=== PATIENT | female | born 1965 | race Two or more races ===

== ENCOUNTER 2020-12-17 19:24 | Inpatient (IN) | payer MEDICAID, OTHER ==
[~2020-12-17] VITALS: Ht 157.5 cm; Wt 90.7 kg
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
[2020-12-17] MEDS ORDERED: ONDANSETRON HCL/PF 4 MG/2 ML VIAL IVP ONE (20:30)
[2020-12-17] MEDS ORDERED: MORPHINE SULFATE INJ 2 MG/ML DISP.SYRIN IV ONE (20:30)
[2020-12-17] MEDS ORDERED: LORAZEPAM INJ 2 MG/ML VIAL IV ONE ×2 (20:30)
[2020-12-17] MEDS ORDERED: IV NS 0.9% 1,000 ML BAG IV ONE (20:30)
[2020-12-17] MEDS ORDERED: LORAZEPAM INJ 2 MG/ML VIAL ONE (20:38)
[2020-12-17] MEDS ORDERED: MORPHINE SULFATE INJ 4 MG/ML DISP.SYRIN ONE (20:38)
[2020-12-17] MEDS ORDERED: ONDANSETRON HCL/PF 4 MG/2 ML VIAL ONE (20:38)
[2020-12-17 20:47] LABS: BASOPHILS % (AUTO) 0.4 % (0.0-2.0); EOSINOPHILS % (AUTO) 1.3 % (0.0-6.0); HEMATOCRIT 47 % (33-45); HEMOGLOBIN 15.5 g/dL (11.5-14.8); LYMPHOCYTES # (AUTO) 2.1 /CMM (0.8-4.8); LYMPHOCYTES % (AUTO) 22.3 % (20.0-44.0); MEAN CORPUSCULAR HGB CONC 33 g/dl (31.0-36.0); MEAN CORPUSCULAR VOLUME 85 fL (82-100); MONOCYTES # (AUTO) 0.6 /CMM (0.1-1.30); MONOCYTES % (AUTO) 6.1 % (2.0-12.0); NEUTROPHILS # (AUTO) 6.7 /CMM (1.8-8.9); NEUTROPHILS % (AUTO) 69.9 % (43.0-81.0); PLATELET COUNT (AUTO) 241 /CMM (150-450); RED BLOOD CELL COUNT(AUTO) 5.55 MIL/uL (4.0-5.2); WHITE BLOOD COUNT (AUTO) 9.6 K/uL (4.3-11.0)
[2020-12-17] MEDS ORDERED: ACETAMINOPHEN ES 500 MG TABLET ONE (20:55)
[2020-12-17] MEDS ORDERED: ACETAMINOPHEN 325 MG TABLET PO ONE (21:00)
[2020-12-17] MEDS ORDERED: CT SWABBABLE VALVE TRANS SET 1 EA INFUS.SET MC ONE (21:26)
[2020-12-17] MEDS ORDERED: IOHEXOL-300 100 ML VIAL IV ONE (21:26)
[2020-12-17] MEDS ORDERED: IV NS 0.9% 250 ML IV ONE (21:26)
[2020-12-17 21:32] LABS: CALCIUM, SERUM 9.4 mg/dL (8.5-10.1); CREATININE 0.9 mg/dL (0.6-1.3); POTASSIUM 3.7 mmol/L (3.5-5.1)
[2020-12-17 21:39] LABS: ALBUMIN 3.9 g/dL (3.4-5.0); BILIRUBIN,DIRECT 0.1 mg/dL (0.0-0.2); BILIRUBIN,TOTAL 0.3 mg/dL (0.2-1.0); TOTAL PROTEIN, SERUM 8.3 g/dL (6.4-8.2)
--- NOTE | 2020-12-17 21:55 | NUR ---
PA ON THE PHONE WITH DR LOPEZ NEUROSTHADDEUSON
[2020-12-17] MEDS ORDERED: LEVETIRACETAM (500MG) 1,000 MG in IV NS 0.9% 100 ML IV ONE (22:00)
[2020-12-17] MEDS ORDERED: LEVETIRACETAM (500MG) 500 MG/5 ML VIAL IV ONE (22:04)
--- NOTE | 2020-12-18 00:39 | NUR ---
PER HOLGER HILLMAN OKAY TO D/C HARD CERVICAL COLLAR AT THIS TIME
[2020-12-18] MEDS ORDERED: Z GUARD REMEDY 2 OZ OINT TP PRN (01:00)
[2020-12-18] MEDS ORDERED: ONDANSETRON HCL/PF 4 MG/2 ML VIAL IVP PRN (01:00)
[2020-12-18] MEDS ORDERED: MAG HYDROX/AL HYDROX/SIMETH 30 ML UDC PO PRN (01:00)
[2020-12-18] MEDS ORDERED: ACETAMINOPHEN 325 MG TABLET PO PRN (01:00)
[2020-12-18] MEDS ORDERED: ZOLPIDEM TARTRATE 5 MG TABLET PO PRN (01:00)
[2020-12-18] MEDS ORDERED: MAGNESIUM HYDROXIDE 30 ML UDC PO PRN (01:00)
[2020-12-18] MEDS ORDERED: HYDROCODONE/APAP 5/325MG TABLET PO PRN (01:00)
--- NOTE | 2020-12-18 01:00 | NUR ---
PT C/O HEADACHE. MD AWARE
[2020-12-18] MEDS ORDERED: MORPHINE SULFATE INJ 2 MG/ML DISP.SYRIN ONE (01:10)
--- NOTE | 2020-12-18 01:11 | NUR ---
PT BROUGHT BY RADIOLOGY TO CT
[2020-12-18] MEDS ORDERED: MORPHINE SULFATE INJ 2 MG/ML DISP.SYRIN IV ONE (01:30)
[2020-12-18 06:01] LABS: BASOPHILS # (AUTO) 0.1 /CMM (0.0-0.2); BASOPHILS % (AUTO) 0.9 % (0.0-2.0); HEMATOCRIT 41 % (33-45); HEMOGLOBIN 13.4 g/dL (11.5-14.8); LYMPHOCYTES # (AUTO) 2.3 /CMM (0.8-4.8); LYMPHOCYTES % (AUTO) 30.4 % (20.0-44.0); MEAN CORPUSCULAR HGB CONC 33 g/dl (31.0-36.0); MEAN CORPUSCULAR VOLUME 84 fL (82-100); MONOCYTES # (AUTO) 0.6 /CMM (0.1-1.30); MONOCYTES % (AUTO) 8.1 % (2.0-12.0); NEUTROPHILS # (AUTO) 4.5 /CMM (1.8-8.9); NEUTROPHILS % (AUTO) 59.6 % (43.0-81.0); PLATELET COUNT (AUTO) 211 /CMM (150-450); RED BLOOD CELL COUNT(AUTO) 4.85 MIL/uL (4.0-5.2); WHITE BLOOD COUNT (AUTO) 7.5 K/uL (4.3-11.0)
--- NOTE | 2020-12-18 06:47 | NUR ---
Patient is resting comfortably in bed with eyes closed. Easily aroused. VSS. will cont to monitor
[2020-12-18 07:50] LABS: CALCIUM, SERUM 8.4 mg/dL (8.5-10.1); CREATININE 0.8 mg/dL (0.6-1.3); MAGNESIUM 2.4 mg/dL (1.8-2.4); PHOSPHORUS 4.3 mg/dL (2.5-4.9); POTASSIUM 3.9 mmol/L (3.5-5.1)
--- NOTE | 2020-12-18 07:56 | NUR ---
PATIENT A/OX4, BREATHING EVEN AND UNLABORED, NO CHANGE IN LOC, NEURO CHECK DONE. PATIENT DENIES ANY PAIN AT THIS TIME.
--- NOTE | 2020-12-18 09:00 | NUR ---
PATIENT A/OX4, BREATHING EVEN AND UNLABORED, NO SOB NOTED. NEEDS ATTENDED. KEPT COMFORTABLE.
[2020-12-18] MEDS ORDERED: ACETAMINOPHEN 325 MG TABLET ONE (10:04)
[2020-12-18] MEDS ORDERED: ONDANSETRON HCL/PF 4 MG/2 ML VIAL ONE (10:08)
--- NOTE | 2020-12-18 12:30 | NUR ---
PATIENT RESTING, EATING LUNCH. NO DISTRESS NOTED. NEUROCHECK DONE. VSS.
[2020-12-18] MEDS ORDERED: HYDROCODONE/APAP 5/325MG TABLET ONE (14:43)
--- NOTE | 2020-12-18 14:47 | NUR ---
PATIENT ATE LUNCH AND TOLERATED WELL. NEEDS ATTENDED. C/O HEADACHE 05/26. NORCO GIVEN FOR PAIN. KEPT COMFORTABLE. TURNED OFF THE LIGHT.
--- NOTE | 2020-12-18 17:37 | NUR ---
Chandler hernandez in [facility] - 12/18/20 at 1752 by DANA [phone]
--- NOTE | 2020-12-18 17:51 | NUR ---
BED 308 AT [facility]. [phone]
--- NOTE | 2020-12-18 18:01 | NUR ---
CALLED [facility] FOR [facility] TRANSPORT TO [place]. ETA IS [phone].
--- NOTE | 2020-12-18 18:08 | NUR ---
CALLED [facility] FOR REPORT. WAS ON HOLD FOR A LONG TIME.
--- NOTE | 2020-12-18 18:12 | NUR ---
INFORMED PATIENT WITH A LURER THAT SHE WILL BE TRANSFERRED TONIGHT AT [facility]. PER PATIENT SHE WILL INFORM HER FAMILY. PATIENT AGREED.
--- NOTE | 2020-12-18 18:14 | NUR ---
CALLED [facility] FOR UPDATED ETA. ETA IS [phone]
[2020-12-18 20:16] VITALS: BP 107/73
--- NOTE | 2020-12-18 20:17 | NUR ---
REPORT CALLED TO [facility] RN JASMIN. REPORT GIVEN TO [facility] TRANSPORT FOREMAN/PROJECT MANAGER. PT TRANSPORTED VIA [facility].
== END 2020-12-18 20:17 | disposition short-term general hospital (02) | DRG 55 ==
LOC: ER 19:26 → TRANSITION 22:18
PROVIDERS: ADMIT Nurse Practitioner Acute Care; ATTEND Nurse Practitioner Acute Care
DX: S06.6X0A Traumatic subarachnoid hemorrhage without loss of consciousness, initial encounter (principal); V49.9XXA Car occupant (driver) (passenger) injured in unspecified traffic accident, initial encounter; Y92.410 Unspecified street and highway as the place of occurrence of the external cause; Z98.890 Other specified postprocedural states; K76.0 Fatty (change of) liver, not elsewhere classified; H93.12 Tinnitus, left ear; S20.219A Contusion of unspecified front wall of thorax, initial encounter; S30.1XXA Contusion of abdominal wall, initial encounter; E66.9 Obesity, unspecified; Z68.36 Body mass index [BMI] 36.0-36.9, adult; S13.9XXA Sprain of joints and ligaments of unspecified parts of neck, initial encounter
CPT/HCPCS: 36415; 70450-TC; 71260-TC; 72125-TC; 80048-TC; 80061-TC; 80076-TC; 83690-TC; 83735-TC; 84100-TC; 85025-TC; 85730-TC; 87081-TC; G0378; J1953; J2060; J2270; J2405; J7030; J7050; Q9967